=== PATIENT | female | born 1990 | race Caucasian/White ===

== ENCOUNTER 2017-10-31 16:11 | Inpatient (IN) | payer OTHER ==
[2017-10-31] MEDS ORDERED: COLACE PO PRN (17:34)
[2017-10-31] MEDS ORDERED: TYLENOL PO PRN (17:34)
[2017-10-31 17:38] LABS: Hematocrit 31.3 % (30.3-42.9); Hemoglobin 10.5 gm/dl (10.1-14.3); Mean Corpuscular HGB Conc 34 % (30-34); Mean Corpuscular Hemoglobin 29 pg (28-32); Mean Corpuscular Volume 86 fl (79-97); Platelet Count 186 K/mm3 (140-440); Red Blood Count 3.62 M/mm3 (3.65-5.03)
[2017-10-31] MEDS ORDERED: APRESOLINE IV PRN (17:43)
[2017-10-31 17:48] LABS: Bilirubin,Urine NEG (Negative); Blood,Urine SM (Negative); Color,Urine Straw (Yellow); RBC,Urine < 1.0 /HPF (0.0-6.0); Urobilinogen,Urine < 2.0 mg/dL (<2.0)
[2017-10-31 17:55] LABS: Alanine Aminotransferase 62 units/L (7-56)
[2017-10-31 17:59] LABS: WBC,Urine < 1.0 /HPF (0.0-6.0)
[2017-10-31] MEDS ORDERED: NARCAN 0.4 MG/1 ML IV PRN (19:28)
[2017-10-31] MEDS ORDERED: XYLOCAINE 2% INFILTRATI ONE (19:28)
[2017-10-31] MEDS ORDERED: CERVIDIL VG ONE (19:28)
[2017-10-31] MEDS ORDERED: ZOFRAN IV PRN (19:28)
[2017-10-31] MEDS ORDERED: BRETHINE SUB-Q PRN (19:28)
[2017-10-31] MEDS ORDERED: MINERAL OIL PO PRN (19:28)
[2017-10-31] MEDS ORDERED: CALCIUM GLUCONATE IV ONE (19:33)
[2017-10-31] MEDS ORDERED: MAGNESIUM SULFATE 4GM/100ML 4 GM/100 ML BAG IV ONE (19:33)
--- NOTE | 2017-10-31 19:46 | History and Physical Report ---
History of Present Illness Date of admission: 10/31/17 17:54 Chief complaint: Sent from clinic due to elevated blood pressures History of present illness: 27yo 37 2/7wks by LMP consistent with a 6 week sono sent from [facility] de today due to BPs 170/88. She was also noted to have 8lb weight gain in one week and 3+ edema. She states she has a headache but no scotoma or RUQ pain. She denies loss of fluid, vaginal bleeding and reports good movement. She transferred from [place] and had care beginning at 24weeks at above clinic. She states she had regular care - uncomplicated in [place] but those records are readily available. She is GBS NEGATIVE. She has a history of 2015 at [facility]. Past History Past Surgical History: no surgical history - Obstetrical History Expected Date of Delivery: 11/19/17 Actual Gestation: 37 Week(s) 2 Day(s) : 2 Hx # Term Pregnancies: 1 Medications and Allergies Allergies Allergy/AdvReac Type Severity Reaction Status Date / Time No Known Allergies Allergy Verified 10/31/17 16:30 Home Medications Medication Instructions Recorded Confirmed Last Taken Type Pnv,Calcium 72/Iron/Folic Acid 1 each PO DAILY #30 tablet 02/12/15 10/31/17 09:00 Rx [ Plus Tablet] 1 Active Meds: Active Medications Acetaminophen (Tylenol) 650 mg PO Q4H PRN PRN Reason: Pain MILD(1-3)/Fever >100.5/NEWELL Butorphanol Tartrate (Stadol) 2 mg IV Q2H PRN PRN Reason: Pain , Severe (7-10) Docusate Sodium (Colace) 100 mg PO Q12H PRN PRN Reason: Constipation Ephedrine Sulfate (Ephedrine Sulfate) 10 mg IV Q2M PRN PRN Reason: Hypotension Hydralazine HCl (Apresoline) 10 mg IV Q30MIN PRN PRN Reason: blood pressure > 160/100 Lactated Ringer's (Lactated Ringers) 1,000 mls @ 125 mls/hr IV DIRECT BRADLEY Magnesium Sulfate (Magnesium Sulfate 40gm/1000ml) 40 gm in 1,000 mls @ 50 mls/ hr IV DIRECT BRADLEY Magnesium Sulfate (Magnesium Sulfate 4gm/100ml) 4 gm in 100 mls @ 300 mls/hr IV ONCE ONE Stop: 10/31/17 19:52 Oxytocin/Sodium Chloride (Pitocin/Ns 20 Unit/1000ml Drip) 20 units in 1,000 mls @ 125 mls/hr IV DIRECT BRADLEY Oxytocin/Sodium Chloride (Pitocin/Ns 30 Unit/500ml) 30 units in 500 mls @ 2 mls /hr IV TITR BRADLEY; Protocol Mineral Oil (Mineral Oil) 30 ml PO QHS PRN PRN Reason: Constipation Naloxone HCl (Narcan 0.4 Mg/1 Ml) 0.1 mg IV Q2MIN PRN PRN Reason: Res Rate </= 8 or 02 SAT < 92% Ondansetron HCl (Zofran) 4 mg IV Q8H PRN PRN Reason: Nausea And Vomiting Terbutaline Sulfate (Brethine) 0.25 mg SUB-Q ONCE PRN PRN Reason: Hyperstimulation/Hypertonicity Review of Systems Neurological: headaches - Vital Signs Vital signs: Vital Signs Pulse BP 75 179/85 10/31/17 16:58 10/31/17 16:58 Temp Pulse Resp BP Pulse Ox 97.8 F 80 18 169/93 97 10/31/17 18:40 10/31/17 19:37 10/31/17 18:40 10/31/17 19:25 10/31/17 19:37 - Obstetrical FHR: category 1 Cervical Dilatation: 1 Cervical Effacement Percentage: 70 station: -3 Results Result Diagrams: 10/31/17 16:33 10/31/17 Unknown Abnormal lab results 10/31/17 10/31/17 Range/Units 16:33 Unknown RBC 3.62 L (3.65-5.03) M/mm3 Creatinine 0.5 L (0.7-1.2) mg/dL AST 53 H (5-40) units/L ALT 62 H (7-56) units/L Lactate Dehydrogenase 211 H (91-180) units/L All other labs normal. Assessment and Plan - Patient Problems (1) Preeclampsia Current Visit: Yes Status: Acute (2) Elevated liver enzymes Current Visit: Yes Status: Acute (3) Morbid obesity Current Visit: Yes Status: Acute (4) 37 weeks gestation of Current Visit: Yes Status: Acute
[2017-10-31] MEDS ORDERED: CALCIUM GLUCONATE 1,000 MG in NACL 0.9% 100 ML IV ONE (20:00)
[2017-10-31] MEDS ORDERED: PITOCin/NS 20 UNIT/1000ML DRIP 20 UNITS/1,000 ML BAG IV SCH (20:00)
[2017-10-31] MEDS ORDERED: CALCIUM CHLORIDE 1,000 MG in NACL 0.9% 100 ML IV ONE (20:00)
[2017-10-31] MEDS: MAGNESIUM SULFATE 40GM/1000ML 40 GM/1,000 ML BAG IV SCH (20:43)
[2017-11-01] MEDS: LACTATED RINGERS 1,000 ML IV SCH ×2 (00:16→13:40)
[2017-11-01 04:34] LABS: Hematocrit 35.2 % (30.3-42.9); Hemoglobin 11.7 gm/dl (10.1-14.3); Mean Corpuscular HGB Conc 33 % (30-34); Mean Corpuscular Hemoglobin 29 pg (28-32); Mean Corpuscular Volume 87 fl (79-97); Platelet Count 181 K/mm3 (140-440); Red Blood Count 4.06 M/mm3 (3.65-5.03); Red Cell Distribution Width 14.1 % (13.2-15.2)
--- NOTE | 2017-11-01 05:05 | Event Note ---
Reviewed chart. BP 168-195/70-90s. Called Penny ELKINS to verify whether patient has received Hydralazine based on orders to be given >160/100. Medicine was not administered since 6pm. Therefore instructed Hydralazine 10mg to be given, per orders and call MD if >2 doses required.
[2017-11-01] MEDS: APRESOLINE IV PRN ×2 (05:08→22:13)
[2017-11-01 05:22] LABS: Alanine Aminotransferase 69 units/L (7-56); Albumin 3.1 g/dL (3.9-5); BUN/Creatinine Ratio 18; Blood Urea Nitrogen 9 mg/dL (7-17); Hemolysis Index 7
[2017-11-01] MEDS ORDERED: NORMODYNE IV ONE (05:56)
[2017-11-01] MEDS ORDERED: PITOCin/NS 30 UNIT/500ML 30 UNITS/500 ML BAG IV SCH (08:00)
--- NOTE | 2017-11-01 09:08 | Event Note ---
Date: 11/01/17 27yo 37 3/7wks with preeclampsia admitted for induction. She is a [place] speaker limited Sami. course relatively unremarkable palpation. complicated by morbid obesity. She is currently on magnesium at 2 g per hour Last blood pressure 140/80. She denies headache or scotomata or epigastric pain at this time plus movement. She denies loss of fluid, vaginal bleeding and reports good movement. She transferred from [place] and had care beginning at 24weeks at above clinic. She is GBS NEGATIVE. She has a history of 2015 at [facility]. Plan: Start Labetalol 200 mg twice a day Continue induction process
[2017-11-01] MEDS: NORMODYNE PO SCH ×2 (09:52→21:15)
[2017-11-01] MEDS ORDERED: PRENATAL VITAMIN PO SCH (10:00)
--- NOTE | 2017-11-01 11:20 | Ultrasound Report ---
LIMITED OB ULTRASOUND: Evaluate for presentation. Gestation: Brady Position: Cephalic Heart Rate: 135 BPM
[2017-11-01] MEDS: MAGNESIUM SULFATE 40GM/1000ML 40 GM/1,000 ML BAG IV SCH (13:40)
--- NOTE | 2017-11-01 18:10 | Event Note ---
Date: 11/01/17 Was notified by RN about elevated magnesium level at 5.90 mg/dL. Dr. Lyons consulted and recommended to decrease Magnesium sulfate level to 1 gm/hr. Order communicated to RN verbally and electronically.
[2017-11-01] MEDS: STADOL IV PRN ×2 (18:15→22:13)
--- NOTE | 2017-11-01 18:30 | Event Note ---
Date: 11/01/17 Assumed care of patient. Received report from Caitlin Ellison CNM. BP elevated 166-170/80s-90s. Will give IV Hydralazine now. Patient is receiving magnesium sulfate for seizure prophylaxis and she is receiving Pitocin for induction of labor. She is also receiving oral Labetalol. Reviewed pt. labs. Noted that pt. had elevated LFTs this AM; will repeat platelet count stat. Pt. reports epigastric pain and states she had a headache but IV pain medication has relieved this. Generalized edema noted. SVE 3-4/75/-4. Clear amniotic fluid noted on pad. FHR baseline 120 with minimal to moderate variability and occasional early FHR deceleration. Lateral position and O2 initiated. Consulted with Eloy re: this patient's complaints, BPs, and labs and interventions taken. No new orders received.
[2017-11-01 21:21] LABS: Alanine Aminotransferase 58 units/L (7-56); BUN/Creatinine Ratio 13; Blood Urea Nitrogen 8 mg/dL (7-17); Hemolysis Index 2
--- NOTE | 2017-11-01 23:31 | Event Note ---
Date: 11/01/17 SVE 5/75/-4. Contractions every 2 to 3 1/2 minutes, moderate. Uterus palpates soft between contractions. FHR baseline 120 with minimal variability and early FHR decelerations. Pitocin turned off and O2 applied. Pt. positioned in lateral position. Called Dr. Lyons and asked him to review FHR tracing due to minimal variability.
[2017-11-02] MEDS: LACTATED RINGERS 1,000 ML IV SCH ×2 (02:10→23:14)
[2017-11-02] MEDS: STADOL IV PRN (02:25)
--- NOTE | 2017-11-02 03:45 | Event Note ---
Date: 11/02/17 Patient has received IV pain medication. SVE /-3. Patient is receiving Pitocin for IOL. Patient is receiving magnesium sulfate for seizure prophylaxis . FHR acceleration noted with scalp stimulation.
[2017-11-02] MEDS ORDERED: CYTOTEC ONE (05:17)
[2017-11-02] MEDS ORDERED: XYLOCAINE 2% INFILTRATI ONE (05:33)
[2017-11-02] MEDS ORDERED: CYTOTEC PR ONE (06:00)
[2017-11-02] MEDS ORDERED: LANSINOH TP PRN (06:37)
[2017-11-02] MEDS ORDERED: BENADRYL PO PRN (06:37)
[2017-11-02] MEDS ORDERED: DULCOLAX PR PRN (06:37)
[2017-11-02] MEDS ORDERED: PHENERGAN PR PRN (06:37)
[2017-11-02] MEDS ORDERED: PHENERGAN PO PRN (06:37)
[2017-11-02] MEDS ORDERED: TYLENOL PO PRN ×2 (06:37→07:11)
[2017-11-02] MEDS ORDERED: TUCKS PAD TP PRN ×2 (06:37→07:11)
[2017-11-02] MEDS ORDERED: ZOFRAN IV PRN (06:37)
[2017-11-02] MEDS ORDERED: MILK OF MAGNESIA PO PRN (06:37)
[2017-11-02] MEDS ORDERED: SODIUM CHLORIDE FLUSH SYRINGE 10 ML IV NR ×2 (07:00→08:00)
--- NOTE | 2017-11-02 07:20 | Procedure Note ---
OB Delivery Note - Delivery Date of Delivery: 11/02/17 Surgeon: JUAN PABLO BRAVO Estimated blood loss: 500cc - Vaginal Delivery presentation: vertex Delivery position: OA Intrapartum events: hemorrhage Delivery induction: oxytocin Delivery monitor: external FHT, external uterine Route of delivery: Delivery placenta: spontaneous Delivery cord: 3 umbilical vessels Episiotomy: none Delivery laceration: 1st degree Delivery repair: vicryl Anesthesia: none Delivery comments: Spontaneous vaginal deliver of liveborn female with apgars of 8/9. Mother and baby stable in birthing room. hemorrhage controlled with IV Pitocin, fundal massage, and rectal Cytotec.
[2017-11-02] MEDS: MOTRIN PO SCH ×3 (08:10→23:16)
[2017-11-02] MEDS: LANSINOH TP PRN ×2 (09:37→18:41)
[2017-11-02] MEDS ORDERED: MOTRIN PO SCH (12:00)
[2017-11-02] MEDS ORDERED: LACTATED RINGERS 1,000 ML IV SCH (15:00)
--- NOTE | 2017-11-02 16:00 | Progress Note ---
Assessment and Plan - Patient Problems (1) 37 weeks gestation of Current Visit: Yes Status: Acute (2) Vaginal delivery Current Visit: Yes Status: Acute Plan to address problem: Continue routine care. (3) Preeclampsia Current Visit: Yes Status: Acute Plan to address problem: Will continue BP, urine output, and DTRs monitoring. Continue magnesium. Monitor level Q6 hrs. Continue labetolol for BP control. (4) Oliguria Current Visit: Yes Status: Acute Plan to address problem: Will give 500cc IV bolus and maintained at 125 cc/hr. Chemistry for renal function (BUN/Cr) ordered. Result pending. Will continue the magnesium if renal function is adequate. Subjective - Subjective Date of service: 11/02/17 Principal diagnosis: S/P , pre-eclampsia Interval history: Patient was admitted 2 days ago for elevated BP. She was treated with Magnesium sulfate for pre-eclampsia and labor was induced. She delivered via this AM. Her BP has since improved with labetolol. Her magnesium was 5.0 and it decreased to 1gm/hr. Her urine out has been 30 ml/hr. I came to see the patient. She was found in bed in no acute distress. She denies any headache, visual disturbances or RUQ pain. She appears edematous ( which was present on admission). Exam: chest is clear. Abd: soft, NT, uterus firm. Ext: +3 pedal edema, no alcf TN or Dion;s sign. Objective - Vital Signs Latest vital signs: Vital Signs Temp Pulse Resp BP BP Pulse Ox 11/02/17 14:00 86 20 142/71 96 11/02/17 12:02 98.3 F 89 18 133/70 96 11/02/17 10:12 84 20 133/70 97 11/02/17 07:40 98.6 F 98 H 20 133/76 96 11/02/17 07:10 105 H 127/73 11/02/17 07:05 104 H 97 11/02/17 07:00 101 H 96 11/02/17 06:55 102 H 128/66 96 11/02/17 06:54 90 11/02/17 06:50 103 H 94 11/02/17 06:48 104 H 94 11/02/17 06:45 103 H 96 11/02/17 06:40 107 H 129/62 95 18 06:36 102 H 94 18 06:35 108 H 95 11/02/17 06:30 110 H 94 11/02/17 06:25 105 H 128/62 94 11/02/17 06:20 102 H 93 11/02/17 06:15 103 H 94 11/02/17 06:10 107 H 129/68 94 11/02/17 06:08 107 H 94 11/02/17 06:05 106 H 94 11/02/17 06:02 88 11/02/17 06:00 101 H 94 11/02/17 05:55 104 H 138/70 91 11/02/17 05:50 105 H 94 11/02/17 05:49 90 11/02/17 05:40 98.3 F 99 H 20 129/75 11/02/17 05:30 99 H 126/71 11/02/17 05:15 99 H 94 11/02/17 05:10 102 H 95 11/02/17 05:05 98 H 78 L 11/02/17 05:01 111 H 173/109 88 11/02/17 05:00 99 H 97 11/02/17 04:54 94 H 99 11/02/17 04:49 94 H 97 11/02/17 04:44 96 H 94 11/02/17 04:39 94 H 98 11/02/17 04:34 94 H 98 11/02/17 04:30 92 H 143/71 11/02/17 04:29 92 H 98 11/02/17 04:28 98.3 F 22 11/02/17 04:25 92 H 94 11/02/17 04:24 97 H 98 11/02/17 04:19 92 H 98 11/02/17 04:14 93 H 98 11/02/17 04:09 92 H 98 11/02/17 04:04 90 98 11/02/17 04:00 91 H 137/66 94 11/02/17 03:59 91 H 98 11/02/17 03:54 93 H 98 11/02/17 03:49 91 H 98 11/02/17 03:44 91 H 98 11/02/17 03:39 93 H 98 11/02/17 03:34 91 H 98 11/02/17 03:31 91 H 143/77 11/02/17 03:29 94 H 98 11/02/17 03:24 90 98 11/02/17 03:19 90 98 11/02/17 03:14 90 98 11/02/17 03:09 92 H 98 11/02/17 03:04 93 H 99 11/02/17 03:00 91 H 130/62 11/02/17 02:59 93 H 98 11/02/17 02:54 93 H 98 11/02/17 02:49 97 H 98 11/02/17 02:44 95 H 95 11/02/17 02:39 92 H 98 11/02/17 02:34 92 H 98 11/02/17 02:30 91 H 136/72 11/02/17 02:29 87 99 11/02/17 02:25 20 11/02/17 02:24 96 H 98 11/02/17 02:22 98.2 F 20 11/02/17 02:19 90 99 11/02/17 02:18 101 H 91 11/02/17 02:14 93 H 97 11/02/17 02:09 93 H 96 11/02/17 02:04 94 H 96 11/02/17 02:00 92 H 143/75 92 11/02/17 01:59 96 H 96 11/02/17 01:54 95 H 96 11/02/17 01:49 94 H 96 11/02/17 01:44 95 H 96 11/02/17 01:39 99 H 96 11/02/17 01:34 96 H 96 11/02/17 01:32 95 H 134/79 11/02/17 01:31 90 94 11/02/17 01:29 95 H 96 11/02/17 01:24 96 H 96 11/02/17 01:19 96 H 96 11/02/17 01:15 89 11/02/17 01:14 95 H 90 11/02/17 01:09 95 H 90 11/02/17 01:04 95 H 89 11/02/17 01:00 94 H 131/69 11/02/17 00:59 95 H 93 11/02/17 00:55 96 H 94 11/02/17 00:54 97 H 96 11/02/17 00:49 95 H 96 11/02/17 00:44 95 H 96 11/02/17 00:39 98 H 97 11/02/17 00:34 96 H 98 11/02/17 00:31 96 H 140/81 11/02/17 00:29 98 H 98 11/02/17 00:24 98 H 98 11/02/17 00:19 98 H 98 11/02/17 00:14 100 H 98 11/02/17 00:09 101 H 98 11/02/17 00:04 101 H 98 11/02/17 00:01 102 H 156/76 11/01/17 23:59 105 H 98 11/01/17 23:33 108 H 95 11/01/17 23:31 105 H 157/82 90 11/01/17 23:28 110 H 98 11/01/17 23:23 103 H 97 11/01/17 23:18 106 H 98 11/01/17 23:13 105 H 97 11/01/17 23:08 105 H 93 11/01/17 23:07 105 H 94 11/01/17 23:03 106 H 94 11/01/17 23:01 104 H 149/77 11/01/17 23:00 106 H 88 11/01/17 22:58 108 H 96 11/01/17 22:53 106 H 95 11/01/17 22:48 105 H 96 11/01/17 22:43 103 H 96 11/01/17 22:38 102 H 96 11/01/17 22:33 102 H 97 11/01/17 22:31 102 H 156/77 92 11/01/17 22:28 101 H 97 11/01/17 22:23 98 H 97 11/01/17 22:18 92 H 97 11/01/17 22:17 98.7 F 20 11/01/17 22:13 87 20 168/85 98 11/01/17 22:10 90 168/85 92 11/01/17 22:09 89 182/89 11/01/17 22:08 91 H 96 11/01/17 22:03 90 96 11/01/17 22:01 90 163/82 11/01/17 22:00 87 88 11/01/17 21:58 92 H 96 11/01/17 21:53 92 H 97 11/01/17 21:48 91 H 97 11/01/17 21:43 90 97 08/24/18 21:38 90 98 08/24/18 21:33 90 97 08/24/18 21:31 90 179/86 91 08/24/18 21:28 92 H 96 08/24/18 21:23 90 97 08/24/18 21:18 91 H 97 08/24/18 21:15 93 H 156/81 08/24/18 21:13 90 95 08/24/18 21:12 88 156/81 93 08/24/18 21:08 91 H 97 08/24/18 21:03 89 96 08/24/18 21:01 87 162/81 08/24/18 21:00 87 92 08/24/18 20:58 89 97 08/24/18 20:53 89 98 08/24/18 20:48 86 98 08/24/18 20:43 86 98 08/24/18 20:40 88 20 156/72 94 08/24/18 20:38 87 98 08/24/18 20:33 86 98 /24/18 20:31 83 172/84 91 08/24/18 20:28 84 98 08/24/18 20:23 84 98 08/24/18 20:18 87 99 08/24/18 20:13 85 98 08/24/18 20:08 87 98 /24/18 20:03 85 98 08/24/18 20:01 84 158/77 08/24/18 20:00 86 92 08/24/18 19:58 86 98 08/24/18 19:53 85 98 08/24/18 19:48 84 93 08/24/18 19:47 83 94 08/24/18 19:43 86 89 08/24/18 19:42 87 94 08/24/18 19:38 86 94 08/24/18 19:33 88 96 08/24/18 19:30 83 161/84 90 08/24/18 19:28 89 95 08/24/18 19:23 87 97 08/24/18 19:20 90 94 08/24/18 19:18 87 95 08/24/18 19:15 87 156/79 90 08/24/18 19:13 89 95 08/24/18 19:09 90 94 08/24/18 19:08 91 H 95 /24/18 19:07 99.3 F 22 08/24/18 19:03 91 H 95 18 19:02 90 170/81 94 18 18:58 85 94 18 18:57 87 94 18 18:53 93 H 95 18 18:51 94 H 94 18 18:48 87 91 18 18:43 87 95 18 18:42 94 18 18:38 90 89 18 18:33 88 156/77 93 18 18:30 90 92 18 18:28 91 H 88 18 18:25 98 H 94 18 18:23 101 H 93 18 18:18 90 166/85 94 18 18:13 94 H 93 11/01/17 18:12 93 H 94 11/01/17 18:08 96 H 91 11/01/17 18:05 96 H 94 11/01/17 18:04 93 H 162/85 11/01/17 18:03 95 H 95 11/01/17 18:01 96 H 175/90 18 18:00 98.9 F 11/01/17 17:58 95 H 94 11/01/17 17:55 94 H 94 11/01/17 17:53 93 H 95 18 17:48 94 H 95 18 17:47 92 H 94 18 17:43 101 H 96 18 17:38 96 H 95 18 17:36 100 H 94 18 17:35 93 H 157/78 18 17:33 101 H 95 18 17:31 93 H 162/100 18 17:28 96 H 95 18 17:26 97 H 94 18 17:23 92 H 95 18 17:21 97 H 94 18 17:18 95 H 96 18 17:13 97 H 95 18 17:08 100 H 95 18 17:03 95 H 95 18 17:01 95 H 94 08/24/18 17:00 94 H 147/74 11/01/17 16:58 94 H 95 11/01/17 16:55 101 H 94 11/01/17 16:53 102 H 95 11/01/17 16:49 89 94 11/01/17 16:48 89 94 11/01/17 16:43 90 95 11/01/17 16:38 94 H 95 11/01/17 16:36 89 94 11/01/17 16:33 92 H 95 11/01/17 16:31 92 H 172/81 94 11/01/17 16:28 90 95 11/01/17 16:25 90 94 11/01/17 16:23 90 95 11/01/17 16:20 89 94 11/01/17 16:18 91 H 94 11/01/17 16:14 89 94 11/01/17 16:13 90 95 11/01/17 16:08 98 H 95 11/01/17 16:03 89 94 11/01/17 16:02 90 94 11/01/17 16:01 88 149/80 11/01/17 16:00 98.3 F 11/01/17 15:58 92 H 95 Intake and Output 11/01/17 11/02/17 11/02/17 23:59 07:59 15:59 Intake Total 1853.232 166.200 Output Total 1780 600 200 Balance 73.232 -433.800 -200 Intake: IV 1273.232 66.200 Lactated Ringers 1,000 ml 1000 @ 125 mls/hr IV DIRECT BRADLEY Rx#:[id number] MAGNESIUM SULFATE 40GM/ 215.833 1000ML 40 gm In 1,000 ml @ 2 GM/HR 50 mls/hr IV DIRECT BRADLEY Rx#:[id number] PITOCin/NS 30 UNIT/500ML 57.399 66.200 30 units In 500 ml @ 2 mls/hr IV TITR BRADLEY Rx#: [id number] Oral 580 100 Output: Urine 1780 600 200 Indwelling Catheter 1780 600 200 Other: Total, Intake Amount 580 100 Total, Output Amount 400 150 200 Estimated Blood Loss 500 - Exam Cardiovascular: Present: Normal S1, Normal S2 Lungs: Present: Clear to auscultation Vulva: both: normal Extremities: Present: edema Deep Tendon Reflex Grade: Normal +2 - Labs Labs: Abnormal lab results 11/01/17 11/01/17 11/01/17 Range/Units 16:32 20:31 20:31 Sodium 133 L (137-145) mmol/L Chloride 97.7 L (98-107) mmol/L Carbon Dioxide 19 L (22-30) mmol/L Creatinine 0.6 L (0.7-1.2) mg/dL Glucose 130 H (65-100) mg/dL Calcium 7.0 L (8.4-10.2) mg/dL Magnesium 5.90 H 5.30 H (1.7-2.3) mg/dL ALT 58 H (7-56) units/L Alkaline Phosphatase 133 H (35-129) units/L Total Protein 5.5 L (6.3-8.2) g/dL Albumin 3.0 L (3.9-5) g/dL 11/02/17 11/02/17 Range/Units 00:35 05:56 Sodium (137-145) mmol/L Chloride (98-107) mmol/L Carbon Dioxide (22-30) mmol/L Creatinine (0.7-1.2) mg/dL Glucose (65-100) mg/dL Calcium (8.4-10.2) mg/dL Magnesium 5.00 H 5.00 H (1.7-2.3) mg/dL ALT (7-56) units/L Alkaline Phosphatase (35-129) units/L Total Protein (6.3-8.2) g/dL Albumin (3.9-5) g/dL
[2017-11-02 16:12] LABS: Basophils % (Auto) 0.3 % (0.0-1.8); Eosinophils # (Auto) 0.1 K/mm3 (0.0-0.4); Eosinophils % (Auto) 0.7 % (0.0-4.3); Hematocrit 27.7 % (30.3-42.9); Hemoglobin 9.2 gm/dl (10.1-14.3); Lymphocytes # (Auto) 1.7 K/mm3 (1.2-5.4); Lymphocytes % (Auto) 17.7 % (13.4-35.0); Mean Corpuscular HGB Conc 33 % (30-34); Mean Corpuscular Hemoglobin 29 pg (28-32); Mean Corpuscular Volume 87 fl (79-97); Monocytes # (Auto) 0.6 K/mm3 (0.0-0.8); Monocytes % (Auto) 6.1 % (0.0-7.3); Platelet Count 174 K/mm3 (140-440); Red Blood Count 3.17 M/mm3 (3.65-5.03); Red Cell Distribution Width 14.4 % (13.2-15.2)
[2017-11-02 16:40] LABS: Alanine Aminotransferase 35 units/L (7-56); Albumin 2.4 g/dL (3.9-5); BUN/Creatinine Ratio 17; Blood Urea Nitrogen 12 mg/dL (7-17); Calcium 6.3 mg/dL (8.4-10.2); Hemolysis Index 9
[2017-11-02 18:01] LABS: Hematocrit 27.3 % (30.3-42.9)
[2017-11-02 20:46] LABS: Hematocrit 26.4 % (30.3-42.9); Hemoglobin 8.6 gm/dl (10.1-14.3)
[2017-11-03] MEDS: MOTRIN PO SCH ×4 (02:00→20:00)
--- NOTE | 2017-11-03 11:13 | Progress Note ---
Assessment and Plan day 1 S/P . Anemia. Preeclampsia; magnesium sulfate has been discontinued. Morbid obesity. P: Supplement with iron. Continue Labetalol for BP control. Subjective - Subjective Date of service: 11/03/17 Principal diagnosis: day 1 S/P ; preeclampsia; obesity Interval history: day 1 S/P spontaneous vaginal delivery. Preeclampsia; morbid obesity. Patient is doing well today. Magnesium Sulfate has been discontinued. Patient is voiding without difficulty. Patient is tolerating a regular diet without nausea or vomiting. Patient is ambulating well. Patient denies headache, visual disturbance, cough, chest pain, shortness of breath, leg pain, abdominal pain, heavy vaginal bleeding, or any other symptoms. BPs have been stable 120s-150s/60s-80s. Patient reports: appetite normal, voiding normally, pain well controlled, flatus , ambulating normally [place]: doing well Objective - Vital Signs Latest vital signs: Vital Signs Temp Pulse Resp BP Pulse Ox 11/03/17 08:00 98.4 F 71 18 153/79 11/03/17 04:00 73 20 126/60 100 11/03/17 02:01 98.0 F 73 20 148/76 98 11/03/17 02:00 18 11/03/17 00:00 98.2 F 82 20 147/72 96 11/02/17 22:00 98.6 F 73 20 138/73 94 11/02/17 21:02 78 20 147/74 97 11/02/17 17:50 77 20 152/84 98 11/02/17 16:24 97.9 F 86 18 134/66 96 11/02/17 14:00 86 20 142/71 96 11/02/17 12:02 98.3 F 89 18 133/70 96 Intake and Output 11/02/17 11/03/17 11/03/17 23:59 07:59 15:59 Intake Total 1120 240 Output Total 1700 1400 600 Balance -580 -1160 -600 Intake: IV 1000 Lactated Ringers 1,000 ml 1000 @ 125 mls/hr IV DIRECT BRADLEY Rx#:[id number] Oral 120 120 Intake, Free Water 120 Output: Urine 1700 1400 600 Indwelling Catheter 1700 1400 Void 600 Other: Total, Intake Amount 120 120 Total, Output Amount 900 600 600 # Bowel Movements 1 - Exam Cardiovascular: Present: Regular rate, Normal S1, Normal S2 Lungs: Present: Clear to auscultation Abdomen: Present: normal appearance, soft, normal bowel sounds. Absent: distention, tenderness, guarding, rigidity Uterus: Present: normal, firm, fundal height below umbilicus. Absent: bogginess Extremities: Present: normal, other (mild generalized edema (improved from yesterday)). Absent: tenderness - Labs Labs: Abnormal lab results 11/02/17 11/02/17 11/02/17 Range/Units 15:50 15:50 17:50 RBC 3.17 L (3.65-5.03) M/mm3 Hgb 9.2 L 9.0 L (10.1-14.3) gm/dl Hct 27.7 L D 27.3 L (30.3-42.9) % Seg Neutrophils % 75.2 H (40.0-70.0) % Sodium 136 L (137-145) mmol/L Carbon Dioxide 19 L (22-30) mmol/L Glucose 121 H (65-100) mg/dL Calcium 6.3 L (8.4-10.2) mg/dL Magnesium (1.7-2.3) mg/dL Total Protein 4.8 L (6.3-8.2) g/dL Albumin 2.4 L (3.9-5) g/dL 11/02/17 11/02/17 11/02/17 Range/Units 17:50 20:14 20:14 RBC (3.65-5.03) M/mm3 Hgb 8.6 L (10.1-14.3) gm/dl Hct 26.4 L (30.3-42.9) % Seg Neutrophils % (40.0-70.0) % Sodium (137-145) mmol/L Carbon Dioxide (22-30) mmol/L Glucose (65-100) mg/dL Calcium (8.4-10.2) mg/dL Magnesium 4.80 H 4.80 H (1.7-2.3) mg/dL Total Protein (6.3-8.2) g/dL Albumin (3.9-5) g/dL 11/02/17 11/03/17 Range/Units 23:14 05:48 RBC (3.65-5.03) M/mm3 Hgb (10.1-14.3) gm/dl Hct (30.3-42.9) % Seg Neutrophils % (40.0-70.0) % Sodium (137-145) mmol/L Carbon Dioxide (22-30) mmol/L Glucose (65-100) mg/dL Calcium (8.4-10.2) mg/dL Magnesium 4.90 H 3.90 H (1.7-2.3) mg/dL Total Protein (6.3-8.2) g/dL Albumin (3.9-5) g/dL
--- NOTE | 2017-11-03 12:28 | Progress Note ---
Assessment and Plan - Patient Problems (1) 37 weeks gestation of Current Visit: Yes Status: Acute (2) Vaginal delivery Current Visit: Yes Status: Acute Plan to address problem: Continue routine care. (3) Preeclampsia Current Visit: Yes Status: Acute Plan to address problem: Will continue BP monitoring. Continue labetolol for BP control. (4) Oliguria Current Visit: Yes Status: Acute Plan to address problem: Resolved. Subjective - Subjective Date of service: 11/03/17 Principal diagnosis: day 1 S/P ; preeclampsia; obesity Interval history: Patient is S/P , PPD#1. She was induced for pre-eclampsia. magnesium was discontinued this AM. She denies any complaint at this time. She ahs been ambulating well. Objective - Vital Signs Latest vital signs: Vital Signs Temp Pulse Resp BP Pulse Ox 11/03/17 08:00 98.4 F 71 18 153/79 11/03/17 04:00 73 20 126/60 100 11/03/17 02:01 98.0 F 73 20 148/76 98 11/03/17 02:00 18 11/03/17 00:00 98.2 F 82 20 147/72 96 11/02/17 22:00 98.6 F 73 20 138/73 94 11/02/17 21:02 78 20 147/74 97 11/02/17 17:50 77 20 152/84 98 11/02/17 16:24 97.9 F 86 18 134/66 96 11/02/17 14:00 86 20 142/71 96 Intake and Output 11/02/17 11/03/17 11/03/17 23:59 07:59 15:59 Intake Total 1120 240 Output Total 1700 1400 600 Balance -580 -1160 -600 Intake: IV 1000 Lactated Ringers 1,000 ml 1000 @ 125 mls/hr IV DIRECT BRADLEY Rx#:[id number] Oral 120 120 Intake, Free Water 120 Output: Urine 1700 1400 600 Indwelling Catheter 1700 1400 Void 600 Other: Total, Intake Amount 120 120 Total, Output Amount 900 600 600 # Bowel Movements 1 - Exam Cardiovascular: Present: Normal S1, Normal S2 Lungs: Present: Clear to auscultation Vulva: both: normal Deep Tendon Reflex Grade: Normal +2 - Labs Labs: Abnormal lab results 11/02/17 11/02/1718 Range/Units 15:50 15:50 17:50 RBC 3.17 L (3.65-5.03) M/mm3 Hgb 9.2 L 9.0 L (10.1-14.3) gm/dl Hct 27.7 L D 27.3 L (30.3-42.9) % Seg Neutrophils % 75.2 H (40.0-70.0) % Sodium 136 L (137-145) mmol/L Carbon Dioxide 19 L (22-30) mmol/L Glucose 121 H (65-100) mg/dL Calcium 6.3 L (8.4-10.2) mg/dL Magnesium (1.7-2.3) mg/dL Total Protein 4.8 L (6.3-8.2) g/dL Albumin 2.4 L (3.9-5) g/dL 11/02/17 11/02/17 11/02/17 Range/Units 17:50 20:14 20:14 RBC (3.65-5.03) M/mm3 Hgb 8.6 L (10.1-14.3) gm/dl Hct 26.4 L (30.3-42.9) % Seg Neutrophils % (40.0-70.0) % Sodium (137-145) mmol/L Carbon Dioxide (22-30) mmol/L Glucose (65-100) mg/dL Calcium (8.4-10.2) mg/dL Magnesium 4.80 H 4.80 H (1.7-2.3) mg/dL Total Protein (6.3-8.2) g/dL Albumin (3.9-5) g/dL 11/02/17 11/03/17 Range/Units 23:14 05:48 RBC (3.65-5.03) M/mm3 Hgb (10.1-14.3) gm/dl Hct (30.3-42.9) % Seg Neutrophils % (40.0-70.0) % Sodium (137-145) mmol/L Carbon Dioxide (22-30) mmol/L Glucose (65-100) mg/dL Calcium (8.4-10.2) mg/dL Magnesium 4.90 H 3.90 H (1.7-2.3) mg/dL Total Protein (6.3-8.2) g/dL Albumin (3.9-5) g/dL
[2017-11-03] MEDS: NORMODYNE PO SCH ×2 (13:45→22:07)
[2017-11-03] MEDS: FEOSOL PO SCH (22:07)
[2017-11-04] MEDS: MOTRIN PO SCH ×2 (02:00→08:46)
--- NOTE | 2017-11-04 09:19 | Progress Note ---
Assessment and Plan - Patient Problems (1) Status post normal vaginal delivery Current Visit: Yes Status: Acute Plan to address problem: PPD 2 - stable Discharge to home today Follow-up at [facility] in 1 week for BP check (2) Anemia in puerperium, baby delivered during current episode of care Current Visit: Yes Status: Acute Plan to address problem: Asymptomatic Continue iron therapy with ferrous sulfate 325mg PO BID (3) Preeclampsia Current Visit: Yes Status: Acute Qualifiers: Trimester: third trimester Qualified Code(s): O14.93 - Unspecified pre- eclampsia, third trimester Plan to address problem: Completed magnesium sulfate therapy Last BP 101/69 - on Labetalol 200mg PO BID Continue antihypertensive therapy Subjective - Subjective Date of service: 11/04/17 Principal diagnosis: s/p ; PPD #2; preeclampsia; obesity Patient reports: appetite normal, voiding normally, pain well controlled, ambulating normally, other (denies headache, visual disturbances or RUQ pain), no dizzy ambulation Kevin: doing well Objective - Vital Signs Latest vital signs: Vital Signs Temp Pulse Resp BP BP Pulse Ox 11/04/17 02:00 18 11/03/17 23:30 98.7 F 78 18 101/69 11/03/17 22:07 80 141/64 11/03/17 20:00 18 11/03/17 18:45 18 11/03/17 15:15 99 F 84 18 150/77 11/03/17 13:45 86 150/76 11/03/17 13:30 98.3 F 86 18 150/76 97 Intake and Output 11/03/17 11/04/17 11/04/17 23:59 07:59 15:59 Intake Total 1070 480 Output Total 600 Balance 470 480 Intake: Oral 830 Intake, Free Water 240 480 Output: Urine 600 Void 600 Other: Total, Intake Amount 830 Total, Output Amount 600 # Voids Void 1 1 - Exam Vulva: both: laceration/episiotomy (well approximated and healing well) Uterus: Present: normal, firm, fundal height below umbilicus Extremities: Present: normal
--- NOTE | 2017-11-04 09:27 | Discharge Summary ---
Providers - Providers Date of Admission: 10/31/17 17:54 Date of discharge: 11/04/17 Attending physician: EDUIN DURAND MD Primary care physician: EDUIN DURAND MD Hospitalization Reason for admission: induction of labor (pre-elampsia), IUP at term Delivery: Episiotomy: none Laceration: 1st degree Other procedures: none complications: uterine atony (PPH) Discharge diagnosis: IUP at term delivered [place] baby: female Hospital course: Complicated by pre-eclampsia Condition at discharge: Stable Disposition: DC-[id number] TO HOME OR SELFCARE - Discharge Diagnoses (1) Status post normal vaginal delivery Status: Acute (2) Anemia in puerperium, baby delivered during current episode of care Status: Acute Comment: Asymptomatic Continue iron therapy (3) Preeclampsia Status: Acute Qualifiers: Trimester: third trimester Qualified Code(s): O14.93 - Unspecified pre- eclampsia, third trimester Comment: BPs stable Continue antihypertensive therapy Plan - Discharge Medications Prescriptions: Ferrous Sulfate [Feosol 325 MG tab] 325 mg PO BID #60 tablet Labetalol [Normodyne TAB] 200 mg PO BID #30 tablet - Provider Discharge Summary Activity: routine, no sex for 6 weeks, no heavy lifting 4 weeks, no strenuous exercise Diet: routine Instructions: routine Additional instructions: [] Smoking cessation referral if applicable(refer to patient education folder for contact #) [] Refer to [facility] Booklet Call your doctor immediately for: * Fever > 100.5 * Heavy vaginal bleeding ( >1 pad per hour) * Severe persistent headache * Shortness of breath * Reddened, hot, painful area to leg or breast * Drainage or odor from incision. * Keep incision clean and dry at all times and follow doctor's instructions regarding bathing/showering - Follow up plan Follow up: EDUIN DURAND MD [Primary Care Provider] - 7 Days (Follow-up at [facility] in 1 week for BP check) Forms: [facility] Discharge Summary
[2017-11-04] MEDS: FEOSOL PO SCH (10:38)
[2017-11-04] MEDS: NORMODYNE PO SCH (10:38)
[2017-11-04 15:22] VITALS: BP 143/73
== END 2017-11-04 12:30 | disposition home or self-care (01) | DRG 774 ==
LOC: TRG 16:11 → LD 17:54 → OBSVTOIN 17:54 → OB 11-02 07:33
PROVIDERS: ADMIT Obstetrics & Gynecology; ATTEND Obstetrics & Gynecology
PROC: 10E0XZZ Delivery of Products of Conception, External Approach (ICD-10-PCS; principal; 2017-11-02)
PROC: 0HQ9XZZ Repair Perineum Skin, External Approach (ICD-10-PCS; 2017-11-02)
PROC: 3E033VJ Introduction of Other Hormone into Peripheral Vein, Percutaneous Approach (ICD-10-PCS; 2017-11-02)
DX: O14.93 Unspecified pre-eclampsia, third trimester (principal); Z68.42 Body mass index [BMI] 45.0-49.9, adult; O72.1 Other immediate postpartum hemorrhage; O26.833 Pregnancy related renal disease, third trimester; Z3A.37 37 weeks gestation of pregnancy; Z37.0 Single live birth; E66.01 Morbid (severe) obesity due to excess calories; Z71.3 Dietary counseling and surveillance; O70.0 First degree perineal laceration during delivery; D64.9 Anemia, unspecified; O99.03 Anemia complicating the puerperium
CPT/HCPCS: 36415; 59200; 76815; 80053; 81001; 82565; 83615; 83735; 84450; 84460; 84550; 85014; 85018; 85025; 85027; 85049; 86592; 86850; 86900; 86901; A6250; J0360; J0595; J0610; J2590; J3475; J7120